=== PATIENT | male | born 1975 | race Caucasian/White ===

== ENCOUNTER 2017-04-29 17:53 | Emergency (ER) | payer SELFPAY ==
[~2017-04-29] VITALS: Ht 172.7 cm; Wt 93.0 kg
[~2017-04-29 17:53] MED LIST: HYDC25 PO
[2017-04-29 17:58] VITALS: TEMP 36.6; Ht 172.7 cm; Wt 93.0 kg
[2017-04-29] MEDS ORDERED: ACET-1256 PO (18:07)
[2017-04-29] MEDS ORDERED: IBUP-103 PO (18:07)
[2017-04-29] MEDS ORDERED: KETOROLAC TROMETHAMINE 60 MG/2 ML VIAL IM STA (18:17)
[2017-04-29] MEDS ORDERED: KETOROLAC TROMETHAMINE 30 MG/ML VIAL IV STA (18:25)
[2017-04-29] MEDS ORDERED: HYDROmorphone INJ 1 MG/ML SYR IV STA (18:25)
[2017-04-29] MEDS ORDERED: HYDROmorphone INJ 1 MG/ML SYR IM ONE (18:30)
--- NOTE | 2017-04-29 19:02 | DIAGNOSTIC IMAGING REPORT ---
LUMBAR SPINE 2 OR 3 VIEWS CLINICAL HISTORY: 41 years-old Male presenting with lower back pain. TECHNIQUE: Frontal, lateral, and coned in lateral views of the lumbar spine were obtained. COMPARISON: None. FINDINGS: Normal lumbar lordosis. Minimal anterior height loss of the L1 vertebral body. The remainder of the vertebral bodies demonstrate normal height and alignment. Mild osteophytosis noted in the upper lumbar spine. Intervertebral disc spaces grossly maintained. No radiographic evidence of subluxation. No apparent osseous neural foraminal narrowing. Nonobstructive bowel gas pattern. IMPRESSION: 1. Mild degenerative change in the upper lumbar spine. 2. Mild anterior vertebral body height loss of L1. This may be degenerative in etiology with compression deformity considered less likely given the patient's age and sex. Electronically signed by: Alfonso Escobedo M.D. 04/29/2017 7:00 PM Dictated Date/Time: 04/29/2017 6:58 PM
--- NOTE | 2017-04-29 19:03 | DIAGNOSTIC IMAGING REPORT ---
R PELVIS/UNILATERAL HIP 2-3VIEWS HISTORY: 41 years-old Male r hip pain acute right-sided hip pain without reported trauma COMPARISON: None available TECHNIQUE: AP view of the pelvis with 2 views of the right hip FINDINGS: Bony pelvis is intact. No pelvic ring fracture. No acute fracture or dislocation identified. There are mild degenerative changes of the bilateral hips. Right femoral acetabular joint is located. Soft tissues are unremarkable without opaque foreign body. IMPRESSION: No acute fracture or dislocation. The above report was generated using voice recognition software. It may contain grammatical, syntax or spelling errors. Electronically signed by: Jb Diaz M.D. 04/29/2017 7:01 PM Dictated Date/Time: 04/29/2017 7:00 PM
[2017-04-29 19:08] LABS: BASO % 0.1 %; BASO ABS # 0.02 K/uL (0-0.2); COMPLETE YES; EOS % 0.2 %; HEMATOCRIT 49.3 % (42-52); IG% 0.5 %; LYMPH % 13.2 %; LYMPH ABS # 1.97 K/uL (1.2-3.4); MEAN CELL VOLUME 87.9 fL (80-100); MEAN CORPUSCULAR HEMOGLOBIN 31.2 pg (25-34); MEAN CORPUSCULAR HGB CONC 35.5 g/dl (32-36); MEAN PLATELET VOLUME 10.3 fL (7.4-10.4); MONO % 7.5 %; NEUT % 78.5 %; PLATELET COUNT 227 K/uL (130-400); RED BLOOD COUNT 5.61 M/uL (4.7-6.1); WHITE BLOOD COUNT 14.92 K/uL (4.8-10.8)
[2017-04-29 19:26] LABS: BUN/CREATININE RATIO 7.9 (10-20); CREATININE 1.08 mg/dl (0.60-1.40); POTASSIUM 3.6 mmol/L (3.5-5.1)
[2017-04-29] MEDS ORDERED: PRED50TA PO (20:28)
[2017-04-29 20:34] LABS: URINE APPEARANCE CLOUDY (CLEAR); URINE BILIRUBIN NEG (NEG); URINE COLOR YELLOW; URINE NITRITE NEG (NEG); URINE SPECIFIC GRAVITY 1.011 (1.000-1.030); UROBILINOGEN NEG (NEG); ZZUR CULT IF INDIC CLEAN CATCH NO
[2017-04-29 20:39] LABS: MANUAL MICROSCOPIC REQUIRED? NO; REVIEW REQ? YES
[2017-04-29 20:44] VITALS: BP 159/101; PULSE 77; O2SAT 99
[2017-04-29 20:45] LABS: URINE EPITHELIAL CELL AUTO 0-5 /lpf (0-5)
--- NOTE | 2017-04-29 22:00 | EMERGENCY ROOM VISIT NOTE ---
History Report prepared by [place]: Christiano Ibrahim Under the Supervision of: Dr. Tyree Tovar D.O. First contact with patient: 18:09 Chief Complaint: HIP PAIN Stated Complaint: SCIATIC PAIN,HIP PAIN History of Present Illness The patient is a 41 year old male who presents to the Emergency Room with complaints of worsening right lower back pain beginning two weeks ago. He was seen at an urgent care center last week for his pain, and was started on Prednisone for sciatica. He states that his pain worsened significantly four hours ago after lifting a tire. The patient also complains of pain in his right hip, and ribs. He denies any pain radiating into his legs, chest pain, SOB, fevers, or urinary symptoms. He denies recent trauma. The patient has no history of cancer. Able to ambulate without difficulty. No IV drug use. No fevers. Source of History: patient Onset: Two weeks ago Position: back (right lower) Timing: worsening Associated Symptoms: No fevers, No chest pain, No SOB, No urinary symptoms Note: Additional symptoms: pain is ribs and right hip. Review of Systems See HPI for pertinent positives & negatives. A total of 10 systems reviewed and were otherwise negative. Past Medical & Surgical Medical Problems: (1) No Known Active Medical Problems Family History No pertinent family history stated. Social History Smoking Status: Current Every Day Smoker Current/Historical Medications Scheduled Prednisone (Prednisone), 50 MG PO DAILY Scheduled PRN Acetaminophen (Tylenol), 1,000 MG PO DIRECTED PRN for Pain or Fever Ibuprofen Tab (Advil), 200-600 MG PO Q4H PRN for Pain or Fever Allergies Coded Allergies: No Known Allergies (Unverified , 04/29/17) Physical Exam Vital Signs Date Time Temp Pulse Resp B/P (MAP) Pulse Ox O2 Delivery O2 Flow Rate FiO2 04/29/17 20:44 77 18 159/101 99 04/29/17 19:59 77 18 159/101 99 Room Air 04/29/17 17:58 36.6 93 20 150/95 100 Room Air Physical Exam GENERAL: Sitting up in bed, minimal distress, holding right hip. EYE EXAM: normal conjunctiva. OROPHARYNX: no exudate, no erythema, lips, buccal mucosa, and tongue normal and mucous membranes are moist NECK: supple, no nuchal rigidity, no adenopathy, non-tender LUNGS: Clear to auscultation. Normal chest wall mechanics HEART: no murmurs, S1 normal and S2 normal ABDOMEN: abdomen soft, non-tender, normo-active bowel sounds, no masses, no rebound or guarding. BACK: Back is symmetrical on inspection and there is no deformity, no midline tenderness, no CVA tenderness. Minimal tenderness in the right glut. UPPER EXTREMITIES: upper extremities are grossly normal. LOWER EXTREMITIES: No pitting edema. Flexion extension of hip, knee, ankle and EHL 5/5 bilaterally. Gross sensation intact. Achilles and patellar reflexes 2/ 4. DPs 2/4. NEURO EXAM: Normal sensorium, cranial nerves II-XII grossly intact, normal speech, no gross weakness of arms, no gross weakness of legs. Medical Decision & Procedures ER Provider Diagnostic Interpretation: Radiology results as stated below per my review and the radiologist's interpretation: LUMBAR SPINE 2 OR 3 VIEWS FINDINGS: Normal lumbar lordosis. Minimal anterior height loss of the L1 vertebral body. The remainder of the vertebral bodies demonstrate normal height and alignment. Mild osteophytosis noted in the upper lumbar spine. Intervertebral disc spaces grossly maintained. No radiographic evidence of subluxation. No apparent osseous neural foraminal narrowing. Nonobstructive bowel gas pattern. IMPRESSION: 1. Mild degenerative change in the upper lumbar spine. 2. Mild anterior vertebral body height loss of L1. This may be degenerative in etiology with compression deformity considered less likely given the patient's age and sex. Electronically signed by: Alfonso Escobedo M.D. 04/29/2017 7:00 PM R PELVIS/UNILATERAL HIP 2-3VIEWS FINDINGS: Bony pelvis is intact. No pelvic ring fracture. No acute fracture or dislocation identified. There are mild degenerative changes of the bilateral hips. Right femoral acetabular joint is located. Soft tissues are unremarkable without opaque foreign body. IMPRESSION: No acute fracture or dislocation. The above report was generated using voice recognition software. It may contain grammatical, syntax or spelling errors. Electronically signed by: Jb Diaz M.D. 04/29/2017 7:01 PM Laboratory Results 04/29/17 18:59 Red Blood Count 5.61, Mean Corpuscular Volume 87.9, Mean Corpuscular Hemoglobin 31.2, Mean Corpuscular Hemoglobin Concent 35.5, Mean Platelet Volume 10.3, Neutrophils (%) (Auto) 78.5, Lymphocytes (%) (Auto) 13.2, Monocytes (%) (Auto) 7.5, Eosinophils (%) (Auto) 0.2, Basophils (%) (Auto) 0.1, Neutrophils # (Auto) 11.71, Lymphocytes # (Auto) 1.97, Monocytes # (Auto) 1.12, Eosinophils # (Auto) 0.03, Basophils # (Auto) 0.02 04/29/17 18:59 Test 04/29/17 18:59 04/29/17 20:21 White Blood Count 14.92 K/uL (4.8-10.8) Red Blood Count 5.61 M/uL (4.7-6.1) Hemoglobin 17.5 g/dL (14.0-18.0) Hematocrit 49.3 % (42-52) Mean Corpuscular Volume 87.9 fL (80-100) Mean Corpuscular Hemoglobin 31.2 pg (25-34) Mean Corpuscular Hemoglobin Concent 35.5 g/dl (32-36) Platelet Count 227 K/uL (130-400) Mean Platelet Volume 10.3 fL (7.4-10.4) Neutrophils (%) (Auto) 78.5 % Lymphocytes (%) (Auto) 13.2 % Monocytes (%) (Auto) 7.5 % Eosinophils (%) (Auto) 0.2 % Basophils (%) (Auto) 0.1 % Neutrophils # (Auto) 11.71 K/uL (1.4-6.5) Lymphocytes # (Auto) 1.97 K/uL (1.2-3.4) Monocytes # (Auto) 1.12 K/uL (0.11-0.59) Eosinophils # (Auto) 0.03 K/uL (0-0.5) Basophils # (Auto) 0.02 K/uL (0-0.2) RDW Standard Deviation 42.4 fL (36.4-46.3) RDW Coefficient of Variation 13.1 % (11.5-14.5) Immature Granulocyte % (Auto) 0.5 % Immature Granulocyte # (Auto) 0.07 K/uL (0.00-0.02) Anion Gap 7.0 mmol/L (3-11) Est Creatinine Clear Calc Drug Dose 98.6 ml/min Estimated GFR () 97.6 Estimated GFR (Non- 84.2 BUN/Creatinine Ratio 7.9 (10-20) Calcium Level 9.0 mg/dl (8.5-10.1) Total Bilirubin 0.6 mg/dl (0.2-1) Direct Bilirubin 0.1 mg/dl (0-0.2) Aspartate Amino Transf (AST/SGOT) 12 U/L (15-37) Alanine Aminotransferase (ALT/SGPT) 23 U/L (12-78) Alkaline Phosphatase 60 U/L (45-117) Total Protein 6.8 gm/dl (6.4-8.2) Albumin 3.7 gm/dl (3.4-5.0) Lipase 76 U/L (73-393) Urine Color YELLOW Urine Appearance CLOUDY (CLEAR) Urine pH 7.0 (4.5-7.5) Urine Specific [place] 1.011 (1.000-1.030) Urine Protein NEG (NEG) Urine Glucose (UA) NEG (NEG) Urine Ketones NEG (NEG) Urine Occult Blood NEG (NEG) Urine Nitrite NEG (NEG) Urine Bilirubin NEG (NEG) Urine Urobilinogen NEG (NEG) Urine Leukocyte Esterase NEG (NEG) Urine WBC (Auto) 0 /hpf (0-5) Urine RBC (Auto) 0-4 /hpf (0-4) Urine Hyaline Casts (Auto) 0 /lpf (0-5) Urine Epithelial Cells (Auto) 0-5 /lpf (0-5) Urine Bacteria (Auto) NEG (NEG) Laboratory results per my review. Medications Administered Medications (Trade) Dose Ordered Sig/Deepali Route Start Time Stop Time Status Last Admin Dose Admin Ketorolac Tromethamine (Toradol Inj) 60 mg NOW STAT IM 04/29/17 18:17 04/29/17 18:27 DC 04/29/17 18:24 60 MG Prednisone (PredniSONE TAB) 60 mg NOW STAT PO 04/29/17 18:17 04/29/17 18:27 DC 04/29/17 18:24 60 MG Hydromorphone HCl (Dilaudid Inj) 1 mg NOW ONCE IM 04/29/17 18:30 04/29/17 18:30 DC 04/29/17 18:23 1 MG ED Course ED COURSE: Vital signs were reviewed and showed mild hypertension The patients medical record was reviewed The above diagnostic studies were performed and reviewed. ED treatments and interventions as stated above. 1811: The patient was evaluated in room B10. A complete history and physical examination was performed. 1817: Ordered Prednisone Tab 60 mg PO, Toradol Inj 60 mg IM. 1825: Ordered Toradol Inj 30 mg IV, Dilaudid Inj 1 mg IV. 1830: Ordered Prednisone Tab 50 mg PO, Dilaudid Inj 1 mg IM. 2030: Upon reevaluation, the patient is resting comfortably. I discussed my findings with the patient and he understands and agrees with the treatment plan. Based on the patients age, coexisting illnesses, exam and lab findings the decision to treat as an outpatient was made. The patient remained stable while under my care. The patient appeared well at the time of discharge. Medical Decision Differential diagnoses includes but is not limited to lumbar radiculopathy, muscle strain, facture, cauda equina, mass, and disc herniation. Patient is a 41-year-old male who presents to ER for pain in his right gluteus and right hip. He notes this started 2 weeks ago initially and was seen at urgent care. Given steroids and pain improved significant. He moved tired and started again today. No numbness in groin. Able to ambulate without difficulty. Able to urinate. Able to move bowels. No fevers. No IV drug use. No history cancer. No red flags. CBC shows a mild leukocytosis of 14, 000 which I favor secondary to pain. BMP all LFTs, bilirubin lipase normal. UA without infection or hematuria to suggest stone. Patient was given Toradol, Dilaudid and steroids. He had significant improvement of symptoms. Completely neurologically intact. Discharged with sciatica. Discussed with Pt concerning signs and symptoms to watch out for. Pt was instructed to follow up with their PCP and discussed with the patient their option to return to the ED at anytime for persistent or worsening symptoms. The appropriate anticipatory guidance and out-patient management, including indications for return to the emergency department, were explained at length to the patient and understood. Medication Reconcilliation Current Medication List: was personally reviewed by me Blood Pressure Screening Patient's blood pressure: Elevated blood pressure Blood pressure disposition: Elevated BP felt to be situational Impression Primary Impression: Sciatica Scribe Attestation The scribe's documentation has been prepared under my direction and personally reviewed by me in its entirety. I confirm that the note above accurately reflects all work, treatment, procedures, and medical decision making performed by me. Departure Information Dispostion Home / Self-Care Prescriptions Prednisone (PREDNISONE) 50 Mg Tab 50 MG PO DAILY for 5 Days, #5 TAB Prov: Tyree Tovar, DO 04/29/17 Referrals No Doctor, Assigned (PCP) Forms HOME CARE DOCUMENTATION FORM, IMPORTANT VISIT INFORMATION, WORK / SCHOOL INSTRUCTIONS Patient Instructions ED Sciatica, My [facility] Additional Instructions Please follow up with your primary care doctor with in the next 24 hours. Any worsening of your symptoms, please return to the ED immediately. This includes any fevers greater than 100.4, weakness or numbness in her legs, numbness in your groin, unable to urinate, unable to move your bowels, worsening pain, chest pain, shortness breath, persistent nausea, vomiting, unable to eat or drink, or any other concerning signs or symptoms from your standpoint. You were given medications during this visit that will inhibit your ability to drive, operate machinery and work. Please do NOT drive, operate machinery or work for the next 12hrs. You were also given a prescription for a narcotic. While taking this medication you should also not drive, operate machinery and or work. Please take Motrin or Tylenol as needed for pain. This take the steroids as prescribed. Problem Qualifiers Primary Impression: Sciatica Laterality: unspecified laterality Qualified Codes: M54.30 - Sciatica, unspecified side
== END 2017-04-29 20:44 | disposition home or self-care (01) ==
LOC: C.EDB 17:54
DX: M54.40 Lumbago with sciatica, unspecified side (principal); F17.200 Nicotine dependence, unspecified, uncomplicated